=== PATIENT | female | born 1945 | race Caucasian/White ===

== ENCOUNTER 2019-02-03 12:15 | Observation (INO) ==
[2019-02-03] MEDS ORDERED: NS 500 ML IV ONE (12:57)
--- NOTE | 2019-02-03 13:11 | EKG Report ---
Test Performed on : 02/03/2019 12:47:41 PM Test Reason : Stroke like symptoms Blood Pressure : / mmHG Vent. Rate : 062 BPM Atrial Rate : 062 BPM P-R Int : 196 ms QRS Dur : 072 ms QT Int : 438 ms P-R-T Axes : 051 -02 039 degrees QTc Int : 444 ms Normal sinus rhythm. Normal ECG When compared with ECG of 19-MAR-2017 21:58, ST elevation now present in Lateral leads Unconfirmed Result
--- NOTE | 2019-02-03 13:18 | Diag Imaging Result Doc PS360 ---
EXAM: CT HEAD/C-SPINE W/O CONTRAST 02/03/2019 HISTORY: fall TECHNIQUE: This exam was performed using automated exposure control, adjustment of mA or kV according to patient size, and/or use of iterative reconstruction technique. COMMENT: There are patchy subcortical and periventricular white matter lucencies. There are calcifications in the internal carotid arteries and vertebral arteries bilaterally. No evidence of bleed or mass effect is present. There are no abnormal fluid collections. The visualized paranasal sinuses are clear. The calvarium is intact. Cervical spine: There is vacuum joint phenomenon in the C2-3 facet on the right. There is vacuum disc phenomenon present at C5-6 and C6-7. There is ankylosis of C3 and C4. There is posterior osteophyte formation at the C4-5 and C5-C6 levels. No evidence of acute fracture or subluxation is present. There is no prevertebral soft tissue swelling. IMPRESSION: No evidence of acute intracranial or cervical spine disease. Chronic microvascular white matter changes and degenerative disc and facet disease as described above. Electronically signed by Guy Flores 02/03/2019 1:16 PM
--- NOTE | 2019-02-03 13:22 | Diag Imaging Result Doc PS360 ---
EXAM: CHEST-PORTABLE 02/03/2019 HISTORY: stroke like symptoms TECHNIQUE: AP upright portable at 1318 COMMENT: The inspiration is less optimal than on 03/19/2017. There is increased interstitial markings in both lung bases which was also the case on the previous study and may be related to fibrosis. IMPRESSION: Stable chest. Electronically signed by Guy Flores 02/03/2019 1:20 PM
[2019-02-03 13:38] LABS: BASO# 0.05 X1000 (0.0-0.2); BASO% 0.6 % (0.0-0.8); EOS# 0.35 X1000 (0.0-0.7); EOS% 4.2 % (0.0-10.0); HEMATOCRIT 41.3 % (37.0-47.0); HEMOGLOBIN 13.3 g/dL (12.0-16.0); IMM GRAN# 0.05 X1000 (0.0-0.04); IMM GRAN% 0.6 % (0.0-0.5); LYMPH# 1.72 X1000 (1.2-3.4); LYMPH% 20.6 % (20.5-51.1); MCH 29.2 PG (27-31); MCHC 32.2 g/dL (33-37); MCV 90.8 FL (81-99); MONO# 0.65 X1000 (0.11-0.59); MONO% 7.8 % (1.7-9.3); MPV 10.2 FL (7.4-10.4); NEUT# 5.53 X1000 (1.4-6.5); NEUT% 66.2 % (42.2-75.2); PLT 265 X1000 (130-400); RBC 4.55 XMIL (4.2-5.4); RDW 14.1 % (11.5-14.5); WBC 8.35 X1000 (4.8-10.8)
[2019-02-03 13:46] LABS: INR 0.92; PROTIME 12.4 Seconds (11.0-16.0)
--- NOTE | 2019-02-03 13:51 | PROVIDER DOCUMENTATION ---
This chart was entered by Susie Mcintosh Scribe, acting as scribe for Jovani Allen MD. HPI-Neurological Disorder <Ron Barnes - Last Filed: 02/03/19 14:34> - General Source: patient, EMS - History of Present Illness-Neuro Headache Location: reports: parietal (right) Severity: reports: mild Onset/Duration: reports: just prior to arrival Timing: reports: still present Context: reports: head injury, falling Character of Altered Mental Status: reports: disoriented, other (drowsy) Any recent trauma/injury?: reports: minor, to head Character of Deficits: reports: falling Cognitive Baseline: alert but disoriented Gait Baseline: uses a cane Associated Symptoms: reports: headache, confusion, neck/back pain, sleepy, weakness, other (abdominal pain) Similar Symptoms Previously?: Yes Recently seen or treated by another doctor?: Yes (seen in ED on 12/09/18) <Jovani Allen - Last Filed: 02/03/19 20:06> - General Chief Complaint: Altered Mental Status Stated Complaint: AMS Time Seen by Provider: 02/03/19 12:52 Allergies/Adverse Reactions: Patient Allergies Allergy/AdvReac Type Severity Reaction Status Date / Time erythromycin base Allergy Severe RASH Verified 12/09/18 12:59 [Erythromycin Base] Sulfa (Sulfonamide Allergy Severe ANAPHYLAXIS Verified 12/09/18 12:59 Antibiotics) Penicillins Allergy Mild RASH Verified 12/09/18 12:59 Home Medications: Home Medication List Medication Instructions Recorded Confirmed Last Taken Type Alprazolam [Xanax] 1 mg PO BID 05/09/12 02/03/19 12/09/18 History Furosemide [Lasix] 40 mg PO DAILY 05/09/12 02/03/19 12/09/18 History Meloxicam [Mobic] 15 mg PO DAILY 05/09/12 02/03/19 12/09/18 History Zolpidem [Ambien] 10 mg PO HS 02/03/19 02/03/19 Unknown History - History of Present Illness-Neuro Nature of Presenting Problem: 73yof presents to ED by EMS cc AMS pain in right parietal region and 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 EMS reports son told them pt abuses Ambien and took extra this morning before fall. Patient is missing 22 Ambien tablets and 29 Xanax tablets in past 2 days. Pt has hx of COPD and HTN. Pt is alert but drowsy and mildly disoriented upon exam. Pt was seen in ED 12/09/18 for fall. (Jovani Allen) Review of Systems - Adult - REVIEW OF SYSTEMS - ADULT Constitutional: reports: see HPI, fatique. denies: chills, fever Eyes: reports: no symptoms reported Ears, Nose, Mouth & Throat: reports: no symptoms reported Cardiovascular: reports: see HPI, other (low b/p). denies: chest pain, palpitations Respiratory: reports: see HPI. denies: cough, shortness of breath Gastrointestinal: reports: see HPI, abdominal pain. denies: nausea, vomiting Genitourinary: reports: no symptoms reported Musculoskeletal: reports: see HPI, back pain. denies: neck pain Integumentary: reports: no symptoms reported Neurological: reports: see HPI, headache/migraines, other (fell) Psychiatric: reports: no symptoms reported Endocrine: reports: no symptoms reported Hematologic/Lymphatic: reports: no symptoms reported Allergic/Immunologic: reports: no symptoms reported All Other Systems: Reviewed and Negative <Jovani Allen - Last Filed: 02/03/19 20:06> Past History - Adult - PAST MEDICAL HISTORY-ADULT Review of Records: reports: Nursing Assessment Review, Medications Reviewed, Social history reviewed & non-contributory. Major Childhood Illnesses: reports: denies history Cardiovascular: reports: HTN Respiratory: reports: COPD Gastrointestinal: reports: denies history Obstetrical/Gynecological: reports: denies history Genitourinary: reports: denies history Musculoskeletal: reports: denies history Neurological: reports: denies history Endocrine/Immune: reports: denies history Other Conditions: reports: denies history - PRIOR HOSPITALIZATIONS Prior Hospitalizations: reports: none - IMMUNIZATION STATUS Childhood Immunizations: See Nurse Assessment Flu Vaccine: See Nurse Assessment - FAMILY HISTORY Family History: reviewed, not pertinent - SOCIAL HISTORY Smoking: cigarettes, greater than 1 pack/day Provider spent 3-5 mins advising pt. on dangers of tobacco.: Discussed manners to quit use, and f/u contacts for add'l counseling. <Jovani Allen - Last Filed: 02/03/19 20:06> Physical Exam- Neurological - Physical Exam-Neuro Initial Vital Signs Reviewed: Yes General Appearance: slow to respond. negative: anxious, combative Eye Exam: bilateral eye: normal inspection, PERRL HENMT: normocephalic/atraumatic, moist mucous membranes. negative: angioedema Head Injury: contusions (slight to right parietal region). negative: active bleeding, raccoon eyes Neck: normal inspection Respiratory: chest non-tender, lungs clear, normal breath sounds. negative: rhonchi, wheezing Cardiovascular: normal peripheral pulses, regular rate, rhythm, no edema. negative: bradycardia, tachycardia Abdominal Exam: normal bowel sounds, soft, tenderness (generalized). negative: rebound Extremity: normal inspection. 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 negative: diaphoresis, jaundice Psych/Mental Status: negative: anxious, disheveled - Glascow Coma Scale Best Eye Response: (4) open spontaneously Best Motor Response: (6) obeys commands <Jovani Allen - Last Filed: 02/03/19 20:06> Progress - PLAN OF CARE/RESULTS Result Diagrams: 02/03/19 13:34 02/03/19 13:34 - REASSESSMENT Reassessment #1 Status: other (Discussed the case with Dr. Allen who reported that the patient is a danger to herself. It is reported that she is acutely altered and has also overdosed on ambien. Given concern for danger to self, altered mentation, and overdose; agree with 2 physician hold.) <Ron Barnes - Last Filed: 02/03/19 14:34> - PLAN OF CARE/RESULTS Result Diagrams: 02/03/19 13:34 02/03/19 13:34 - EKG 1 Time of EKG reading by physician:: 12:47 EKG Read and Signed by:: Jovani Allen EKG Interpretation (*Must complete 3 of following elements*): Normal Rate: 62 Rhythm: NSR QRS: normal WA Interval: normal - XRAY 1 XRAY: Bilateral XRAY Study: Chest Impression: See EMR Report (IMPRESSION: Stable chest. Electronically signed by Guy Flores 02/03/2019 1:20 PM) - CT/MRI 1 CT Study: Cervical Spine, Head Impression: See EMR Report (IMPRESSION: No evidence of acute intracranial or cervical spine disease. Chronic microvascular white matter changes and degenerative disc and facet disease as described above. Electronically signed by Guy Flores 02/03/2019 1:16 PM) - CONSULTS/PCP/HOSPITALIST Notification #1 *Consult/PCP/Hospitalist*: Dr. YIMI Hoff Time Discussed: 14:35 Consult Disposition: Admit <Jovani Allen - Last Filed: 02/03/19 20:06> - PLAN OF CARE/RESULTS Progress/Plan/Lab Results: Vital Signs - 8 hr 02/03/19 12:37 02/03/19 12:38 02/03/19 12:40 Temperature 98.1 F Pulse Rate 65 63 62 Respiratory Rate 20 21 27 H Blood Pressure 92/55 92/55 79/56 O2 Sat by Pulse Oximetry 97 98 97 02/03/19 12:41 02/03/19 12:54 02/03/19 13:31 Temperature Pulse Rate 64 66 60 Respiratory Rate 20 22 25 H Blood Pressure 82/47 108/65 87/59 O2 Sat by Pulse Oximetry 98 97 98 02/03/19 13:41 02/03/19 14:02 02/03/19 14:10 Temperature Pulse Rate 62 57 L 59 L Respiratory Rate 26 H 22 23 Blood Pressure 108/73 116/36 112/64 O2 Sat by Pulse Oximetry 99 100 97 02/03/19 14:22 02/03/19 14:40 Temperature Pulse Rate 58 L 59 L Respiratory Rate 17 16 Blood Pressure 95/52 127/66 O2 Sat by Pulse Oximetry 98 99 Laboratory Results - last 24 hr 02/03/19 02/03/19 02/03/19 13:34 13:34 13:34 WBC 8.35 RBC 4.55 Hgb 13.3 Hct 41.3 MCV 90.8 MCH 29.2 MCHC 32.2 L RDW Std Deviation 14.1 Plt Count 265 MPV 10.2 Immature Gran % (Auto) 0.6 H Neut % (Auto) 66.2 Lymph % (Auto) 20.6 [place] % (Auto) 7.8 Eos % (Auto) 4.2 Baso % (Auto) 0.6 Immature Gran # (Auto) 0.05 H Neut # (Auto) 5.53 Lymph # (Auto) 1.72 [place] # (Auto) 0.65 H Eos # (Auto) 0.35 Baso # (Auto) 0.05 PT 12.4 INR 0.92 Sodium 137 Potassium 4.7 Chloride 96 L Carbon Dioxide 28 Anion Gap 13 BUN 34 H Creatinine 1.3 H Estimated GFR/1.73 m2 40 BUN/Creatinine Ratio 26 Glucose 95 Calculated Osmolality 281 Calcium 9.9 Total Bilirubin 0.33 AST 28 ALT 31 Alkaline Phosphatase 72 Troponin T Total Protein 6.8 Albumin 4.5 Globulin 2.3 Albumin/Globulin Ratio 2.0 Urine Source Urine Color Urine Turbidity Urine pH Ur Specific [place] Urine Protein Ur Glucose (Stick) Ur Ketones (Stick) Urine Blood Urine Nitrite Urine Bilirubin Urobilinogen Dipstick Urine Leukocytes Urine WBC (Auto) Urine RBC (Auto) U Epithel Cells (Auto) Urine Bacteria (Auto) Salicylates < 3.00 L Urine Opiates Screen Ur Oxycodone Screen Ur Methadone, Qual Acetaminophen < 1.2 L Ur Barbiturates Screen Ur Phencyclidine Scrn Ur Amphetamines Screen U Benzodiazepines Scrn Urine Cocaine Screen U Cannabinoids Screen 02/03/19 02/03/19 02/03/19 13:34 14:02 14:02 WBC RBC Hgb Hct MCV MCH MCHC RDW Std Deviation Plt Count MPV Immature Gran % (Auto) Neut % (Auto) Lymph % (Auto) [place] % (Auto) Eos % (Auto) Baso % (Auto) Immature Gran # (Auto) Neut # (Auto) Lymph # (Auto) [place] # (Auto) Eos # (Auto) Baso # (Auto) PT INR Sodium Potassium Chloride Carbon Dioxide Anion Gap BUN Creatinine Estimated GFR/1.73 m2 BUN/Creatinine Ratio Glucose Calculated Osmolality Calcium Total Bilirubin AST ALT Alkaline Phosphatase Troponin T < 0.010 Total Protein Albumin Globulin Albumin/Globulin Ratio Urine Source CLEAN CATCH Urine Color STRAW Urine Turbidity CLEAR Urine pH 6.5 Ur Specific [place] 1.007 Urine Protein NEGATIVE Ur Glucose (Stick) NEGATIVE Ur Ketones (Stick) NEGATIVE Urine Blood NEGATIVE Urine Nitrite NEGATIVE Urine Bilirubin NEGATIVE Urobilinogen Dipstick NORMAL Urine Leukocytes LARGE A Urine WBC (Auto) 20-40 A Urine RBC (Auto) <10 U Epithel Cells (Auto) <10 Urine Bacteria (Auto) 4+ Salicylates Urine Opiates Screen NONE DETECTED Ur Oxycodone Screen NONE DETECTED Ur Methadone, Qual NONE DETECTED Acetaminophen Ur Barbiturates Screen NONE DETECTED Ur Phencyclidine Scrn NONE DETECTED Ur Amphetamines Screen NONE DETECTED U Benzodiazepines Scrn PRESUMPTIVE POSITIVE A Urine Cocaine Screen NONE DETECTED U Cannabinoids Screen NONE DETECTED Orders Category Date Time Status Admit - [facility] Routine AdmDCTranf 02/03/19 14:38 Active Activity - Strict Bedrest ORDERED Care 02/03/19 14:38 Active Cardiac Monitoring DIRECTED Care 02/03/19 12:55 Completed Finger Stick Blood Sugar (ED) DIRECTED Care 02/03/19 12:55 Completed Resuscitation Status Routine Care 02/03/19 14:38 Ordered Saline Loc NOW Care 02/03/19 12:55 Active Vital Signs Order Q 4-HR ASSESS Care 02/03/19 14:38 Active NPO Diet 02/03/19 14:40 Completed CHEST-PORTABLE [RAD] Stat Exams 02/03/19 12:[address] HEAD/C-SPINE W/O CONTRAST [CT] Stat Exams 02/03/19 12:53 Completed ABG [RESP] Routine Lab 02/03/19 15:37 Completed ACETAMINOPHEN [TDM] Stat Lab 02/03/19 13:34 Completed CBC WITH ELECTRONIC DIFF [HEME] Stat Lab 02/03/19 13:34 Completed COMPREHENSIVE METABOLIC PANEL [CHEM] Stat Lab 02/03/19 13:34 Completed PROTIME WITH INR [COAG] Stat Lab 02/03/19 13:34 Completed SALICYLATES [TDM] Stat Lab 02/03/19 13:34 Completed TROPONIN T Stat Lab 02/03/19 13:34 Completed URINALYSIS W/POSS RFLX CULT [URINALYSIS] Stat Lab 02/03/19 14:02 Completed URINE CULTURE [RM] Routine Lab 02/03/19 14:02 Received URINE DRUG SCREEN Stat Lab 02/03/19 14:02 Completed 0.9% Sodium Chloride Inj [Ns] 500 ml Med 02/03/19 12:57 Discontinued IV 999 mls/hr CefTRIAXONE [Rocephin] 1 gm Med 02/03/19 14:34 Discontinued 0.9% Sodium Chloride Inj [Ns] 50 ml IV NOW Oxygen Device Stat Oth 02/03/19 12:58 Completed Pulse Oximetry Stat Oth 02/03/19 14:46 Completed Telemetry [OM.EQ] Routine Oth 02/03/19 14:38 Active EKG [EKG] Stat Ther 02/03/19 12:55 Draft Transfer/Admit Order [TRANSFER] Routine Transfer 02/03/19 14:40 Completed Departure <VanderWall,Ron TEly - Last Filed: 02/03/19 14:34> - Departure Date of Disposition Decision: 02/03/19 Time of Disposition Decision: 15:10 Certified Medical Emergency: Emergent - Critical Care Note This patient required my direct & personal management of CC.: No <Jovani Allen - Last Filed: 02/03/19 20:06> - Departure DIAGNOSIS: Chronic mental illness Overdose Qualifiers: Encounter type: initial encounter Injury intent: undetermined intent Qualified Code(s): T50.904A - Poisoning by unspecified drugs, medicaments and biological substances, undetermined, initial encounter Urinary tract infection Qualifiers: Urinary tract infection type: site unspecified Hematuria presence: without hematuria Qualified Code(s): N39.0 - Urinary tract infection, site not specified Altered mental state Qualifiers: Altered mental status type: unspecified Qualified Code(s): R41.82 - Altered mental status, unspecified Disposition: ADMITTED INPATIENT 09 Condition: Stable Attestation - Physician/ AMA Attestation Patient care was provided by Advanced Practice Provider:: No The physician spent face to face time with patient:: Yes Advanced Practice Provider documentation review:: Supervising physician onsite and consulted in the evaluation and care of this patient. The physician did have a face to face encounter with the patient. <Jovani Allen - Last Filed: 02/03/19 20:06> This chart was documented by the indicated scribe, (Susie Mcintosh Scriboscar) and accurately reflects the services I performed and decisions made by me, Co Jovani lara MD, as attested by the provider's signature.
[2019-02-03 14:08] LABS: ALBUMIN 4.5 g/dL (3.5-5.0); CHLORIDE 96 mmol/L (98-107); POTASSIUM 4.7 mmol/L (3.5-5.1); SODIUM 137 mmol/L (136-145)
[2019-02-03 14:12] LABS: URINE SOURCE CLEAN CATCH
[2019-02-03 14:21] LABS: ACETAMINOPHEN < 1.2 ug/mL (10-30); ALKALINE PHOSPHATASE 72 U/L (32-104); BUN 34 mg/dL (8-22); CALCIUM 9.9 mg/dL (8.8-10.2); CREATININE 1.3 mg/dL (0.5-0.9); ESTIMATED GFR 40; GLUCOSE 95 mg/dL (70-104); GOT 28 U/L (10-30); GPT 31 U/L (10-36); SALICYLATES < 3.00 mg/dL (3-10); TCO2 28 mmol/L (25-35); TOTAL BILIRUBIN 0.33 mg/dL (0.20-1.00); TOTAL PROTEIN 6.8 g/dL (6.3-8.3)
[2019-02-03 14:27] LABS: BILIRUBIN URINE NEGATIVE (NEGATIVE); BLOOD URINE NEGATIVE (NEGATIVE); COLOR STRAW; GLUCOSE URINE NEGATIVE (NEGATIVE); KETONE URINE NEGATIVE (NEGATIVE); LEUKOCYTES URINE LARGE (NEGATIVE); NITRITE URINE NEGATIVE (NEGATIVE); PH URINE 6.5; PROTEIN URINE NEGATIVE (NEGATIVE); SP GRAVITY URINE 1.007; TURBIDITY URINE CLEAR (CLEAR); UROBILINOGEN URINE NORMAL (NORMAL)
[2019-02-03 14:28] LABS: UR EPITHELIAL CELLS <10 /HPF (<10); URINE BACTERIA 4+ /HPF; URINE RBC <10 /HPF (<10); URINE WBC 20-40 /HPF (<10)
[2019-02-03] MEDS ORDERED: ROCEPHIN 1 GM in NS 50 ML IV ONE (14:34)
[2019-02-03 14:37] LABS: AGAP 13
[2019-02-03 14:38] LABS: COSMO 281
[2019-02-03 14:43] LABS: UR AMPHETAMINES QUAL NONE DETECTED (NONE DETECT); UR BARBITUATES QUAL NONE DETECTED (NONE DETECT); UR BENZODIAZEPIN QUAL PRESUMPTIVE POSITIVE (NONE DETECT); UR CANNABINOIDS QUAL NONE DETECTED (NONE DETECT); UR COCAINE QUAL NONE DETECTED (NONE DETECT); UR METHADONE QUAL NONE DETECTED (NONE DETECT); UR OPIATES QUAL NONE DETECTED (NONE DETECT); UR OXYCODONE QUAL NONE DETECTED (NONE DETECT); UR PCP QUAL NONE DETECTED (NONE DETECT)
[2019-02-03 15:47] LABS: ALLEN TEST NO; BE 1.4 mmoll (-3.0-3.0); BLOOD TYPE ARTERIAL; METHB 0.9 % (0.0-1.5); O2(CT) 17.4 mL/dL (15.0-23.0); O2HB 94.7 % (95.0-99.0); PCO2(98.6) 35 mmHg (35-45); PO2(98.6) 78 mmHg (60-100); SAMPLE BLOOD; SAO2 98.6 % (95.0-100.0); pH(98.6) 7.46 (7.35-7.45)
[2019-02-03 15:48] LABS: MODALITY ROOM AIR
[2019-02-03 19:30] VITALS: BP 142/61
[2019-02-03] MEDS ORDERED: NS 1,000 ML IV SCH (19:45)
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
[2019-02-04] MEDS ORDERED: MOBIC PO SCH (09:00)
== END 2019-02-03 20:00 | disposition left against medical advice (07) ==
LOC: SUPCPDRO → ED 12:15 → ICU 12:15
PROVIDERS: ADMIT Internal Medicine; ATTEND Internal Medicine